=== PATIENT | female | born 1985 | race Caucasian/White ===

== ENCOUNTER 2022-03-04 14:02 | Emergency (ER) | payer OTHER ==
[~2022-03-04] VITALS: Ht 170.2 cm; Wt 63.5 kg
[~2022-03-04 14:02] MED LIST: GILTUSS LIQUID237 M1 PO; IMODIUM A-D2 MG PO; OSEL75CA PO; PEPCID40 MG PO; PROTONIX20 MG; ZOFRAN4 MG PO
[2022-03-04] MEDS ORDERED: SPRINTEC 28 DA1 EACH PO (14:29)
== END 2022-03-04 19:42 | disposition home or self-care (01) ==
LOC: ER 14:02
DX: R07.89 Other chest pain (principal)